=== PATIENT | female | born 1960 | race Caucasian/White ===

== ENCOUNTER 2025-09-22 17:51 | Inpatient (IN) | payer OTHER, MEDICARE ==
[~2025-09-22] VITALS: Ht 170.2 cm; Wt 99.6 kg
[~2025-09-22 17:51] MED LIST: AMLO1TAB23 PO; IBUP-1454 PO; LISI-285 PO; PRAV20TA3 OR; ZOLP10TA PO
--- NOTE | 2025-09-22 18:06 | ED.PDOC ---
HPI Comments HPI: 65 year old female presents to the ED via EMS with a chief complaint of chest pain onset 2 days. Per EMS, patient began experiencing LT sided chest pain, pressure sensation, for the past 2 days, worsens with exertion. She went to urgent care due to pain worsening, she was hypertensive, 911 was called. Patient was given Aspirin in route to ED, had slight improvement of symptoms. Denies shortness of breath, dizziness, numbness/tingling, fever, chills, nausea, vomiting, diarrhea. No other symptoms or modifying factors present at this time. Initial Vitals BP: 208/110 HR: 76 RR: 16 O2 Sat: 99% Temp: 98.2 F Past Medical history: HTN, HLD Past Surgical history: appendectomy, , RT foot surgery Medications: Amlodipine, Aspirin, Propranolol Social History: Denies smoking, ETOH, and drug use. Allergies: NKDA HOUSE: CP, HTN, OBESE. NORMAL EXAM. HPI: Poor Historian. REVIEW OF SYSTEMS: CONSTITUTIONAL: Denies acute: fever, diaphoresis, chills, generalized weakness. HEAD: Denies acute: headache, photophobia Eyes: Denies acute: Double vision, vision loss, eye pain, eye discharge. EARS: Denies acute: tinnitus, hearing loss, ear discharge, ear pain, THROAT: Denies acute: sore throat, swelling, difficulty swallowing , pain with swallowing, change in voice. NECK: Denies acute: neck pain, neck swelling, stiff neck. HEART: Denies acute : palpitations, LUNGS: Denies acute: SOB, wheezing, cough, hemoptysis ABDOMEN: Denies acute: abdominal pain, Nausea, Vomiting, diarrhea, melena , hematemesis, hematochezia SKIN: Denies acute: rash, redness, lesions, itchiness. EXTREMITIES: Denies acute: calf pain, numbness, tingling, weakness, Denies acute: Low back pain. Neuro: Denies acute: focal neurological deficit, motor or sensory focal neurological deficit, tremors, seizure like activity, confusion, dizziness, change in mental status, loss of bowel or bladder function, cauda equina like symptoms. : Denies acute: dysuria, hematuria, flank pain, increase in urinary frequency. PSYCH: Denies acute: hallucination, suicidal ideation, homicidal ideation. FEMALE: Denies acute: abnormal vaginal bleeding, foul odor, unusual discharge. PHYSICAL EXAM: General: -----mild---acute distress, awake and alert. Head: normocephalic, atraumatic. No raccoon's eyes, no cohen sign. Neck: supple, trachea is midline, no swelling. Throat: Normal phonation. Eyes:, no erythema, no purulent discharge, no proptosis, no icterus. Heart: regular rate, regular rhythm, no significant murmur appreciated. Lungs: no apparent respiratory distress, Able to speak in full sentences. No wheezing, no rhonchi, no crackles. No stridors Clear to auscultation bilaterally. Abdomen: non tender to palpation, non distended, soft, no guarding, no rebound, + bowel sounds. Obese Neuro: Awake, Alert, oriented to name, self, situation, follows commands GCS=15. Speech is normal. Skin: no petechia, no purpura, no cyanosis, non-pale, not jaundice. Lower extremities: --trace bilateral - Pitting edema no deformity, no focal swelling, no calf TTP. Makes eye contact. moves all four extremities. Face: no apparent facial droop. Ambulating in the ED independently. ED COURSE: DISCLAIMER: This medical document was created using an electronic medical record system with voice recognition software and computerized dictation system. Although this document has been carefully reviewed, there might still be some phonetic and typographical errors. Occasional wrong-word or "sound-alike" substitutions may have occurred due to the inherent limitations of voice recognition software. These areas are purely typographical due to imperfections of the software programs and do not reflect any compromise in the patient's medical care. Please read the chart carefully and recognize, using context, where these substitutions have occurred. Chief Complaint: Chest Pain Time Seen by MD: 18:00 Reviewed Notes: Medications, Allergies Allergies: Coded Allergies: NO KNOWN ALLERGIES (Unverified , 04/25/16) Home Meds Reported Medications Ibuprofen (Ibuprofen) 600 Mg Tab, 1 TAB PO BID, #90 TAB 04/25/16 Zolpidem Tartrate (Ambien) 10 Mg Tab, 1 TAB PO HS, #30 TAB 5 Refills 04/25/16 Amlodipine Besylate (Amlodipine Besylate) 10 Mg Tab, 1 TAB PO DAILY, #30 TAB 5 Refills 04/25/16 Lisinopril & Hydrochlorothiazi (Lisinopril/Hydrochlorothi) 1 Tab Tab, 1 TAB PO DAILY, #30 TAB 5 Refills 04/25/16 Pravastatin Sodium (PRAVACHOL TABLET) 20 Mg Tb, 40 MG OR DAILY 04/25/16 Information Source: Patient, Emergency Med Personnel Mode of Arrival: EMS Timing: Hours Duration: Since onset Prehospital treatment: Other (aspirin) Past Medical History PAST MEDICAL HISTORY: High Lipids, HTN Surgical History: Appendectomy OCCUPATIONAL HEALTH MANAGER History: No Pertinent OCCUPATIONAL HEALTH MANAGER History Family History Family History: Reviewed,noncontributory to illness, No family hx of Cancer, No family hx of DM, No family hx of Heart alfonso, No family hx of HTN, No family hx ofKidney alfonso, No family hx of Liver alfonso, No family hx of Lung alfonso, No family hx of Stroke Social History Smoker: Non-Smoker Alcohol: Denies ETOH Use Drugs: Denies Drug Use Lives In: Home Was a procedure done? Was a procedure done?: No X-Ray, Labs, Meds, VS Vital Signs Date Time Temp Pulse Resp B/P (MAP) Pulse Ox O2 Delivery O2 Flow Rate FiO2 09/22/25 20:09 150/73 09/22/25 19:30 97.7 74 18 173/97 (122) 96 97.7 09/22/25 19:02 96 Nasal Cannula* 2 28 09/22/25 19:01 77 21 169/84 (112) 96 09/22/25 18:54 79 179/78 09/22/25 18:53 79 09/22/25 18:40 77 17 96 Room Air* 0 21 09/22/25 18:40 202/110 09/22/25 18:40 97.8 77 17 202/110 (140) 96 97.8 09/22/25 17:56 98.2 76 16 208/110 99 98.2 09/22/25 17:53 81 Lab Test 09/22/25 19:52 09/22/25 18:25 Range/Units Troponin I High Sensitivity Pending 10 </=34 ng/L White Blood Count 6.9 4.4-10.8 10^3/uL Red Blood Count 4.92 4.0-5.20 10^6/uL Hemoglobin 13.8 12.2-16.2 g/dL Hematocrit 40.8 36.0-46.0 % Mean Corpuscular Volume 82.8 80.0-100.0 fL Mean Corpuscular Hemoglobin 28.1 28.0-32.0 pg Mean Corpuscular Hemoglobin Concent 33.9 32.0-36.0 g/dL Red Cell Distribution Width 13.7 11.8-14.3 % Platelet Count 211 140-450 10^3/uL Mean Platelet Volume 10.2 6.9-10.8 fL Neutrophils (%) (Auto) 52.5 37.0-80.0 % Lymphocytes (%) (Auto) 31.0 10.0-50.0 % Monocytes (%) (Auto) 8.3 0.0-12.0 % Eosinophils (%) (Auto) 7.6 H 0.0-7.0 % Basophils (%) (Auto) 0.6 0.0-2.0 % Neutrophils # (Auto) 3.6 1.6-8.6 10 ^3/uL Lymphocytes # (Auto) 2.1 0.4-5.4 10 ^3/uL Monocytes # (Auto) 0.6 0-1.3 10 ^3/uL Eosinophils # (Auto) 0.5 0-0.8 10 ^3/uL Basophils # (Auto) 0 0-0.2 10 ^3/uL Nucleated Red Blood Cells 0.1 % Sodium Level 142 136-145 mmol/L Potassium Level 3.7 3.5-5.1 mmol/L Chloride Level 109 H 98-107 mmol/L Carbon Dioxide Level 22 20-31 mmol/L Anion Gap 11 5-15 Blood Urea Nitrogen 11 9-23 mg/dL Creatinine 0.78 0.550-1.02 mg/dL Glomerular Filtration Rate Calc 84 >90 mL/min BUN/Creatinine Ratio 14.1 10.0-20.0 Serum Glucose 95 74-106 mg/dL Calcium Level 10.0 8.7-10.4 mg/dL Total Bilirubin 0.3 0.2-1.0 mg/dL Aspartate Amino Transferase (AST) 23 13-40 U/L Alanine Aminotransferase (ALT) 22 7-40 U/L Alkaline Phosphatase 101 46-116 U/L Total Protein 6.8 5.7-8.2 g/dL Albumin 4.1 3.2-4.8 g/dL Current Medications Medications (Trade) Dose Ordered Sig/Erwin Route Start Time Stop Time Status Last Admin Nitroglycerin (Ntrostat Sublingual) 0.4 mg ONCE ONCE SL 09/22/25 18:15 09/22/25 18:16 DC 09/22/25 18:40 Labetalol HCl (Labetalol HCl) 5 mg ONCE ONCE IV 09/22/25 18:45 09/22/25 18:46 DC 09/22/25 18:54 Amlodipine Besylate (Norvasc Tablet) 10 mg ONCE ONCE PO 09/22/25 20:00 09/22/25 20:06 DC 09/22/25 20:09 [place] [id number] Ph: [phone] DIAGNOSTIC IMAGING Diagnostic Imaging Report : [id number] Signed PATIENT: ZULEYMA GONZALEZ ACCT: [id number] UNIT: [id number] : 1960 LOC: ER ROOM / BED: / AGE / SEX: 65 / F ADM STATUS: REG ER SERVICE 04 ORDERING PHYSICIAN: THEODORE MO DO PROCEDURE(s): CXRP - CHEST PORTABLE REASON: CP ORDER NUMBER(s): [id number], ACCESSION NUMBER(s): [id number] CHEST RADIOGRAPH INDICATION: CP TECHNIQUE: Single frontal view of the chest was obtained COMPARISON: None FINDINGS: Lines and Tubes: None Lungs: No focal consolidation. Pleura: No effusion. No pneumothorax. Cardiomediastinal contours: Unremarkable Bones: No acute osseous abnormality. IMPRESSION: 1. No acute cardiopulmonary disease. 2. Prominent interstitial markings in the right lower lobe medially. 3. No prior studies for comparison. ATED BY: MINA PARRA Jr., DO DICTATED DATE/TIME: 09/22/251906 SIGNED BY: MINA PARRA Jr., DO SIGNED DATE/TIME: 09/22/251906 CC: Time of 1ST Reevaluation: 18:30 Reevaluation 1ST: Unchanged Patient Education/Counseling: Diagnosis, Treatment Family Education/Counseling: No Family Present Departure 1 Departure Impression: Primary Impression: Chest pain Additional Impression: Hypertensive urgency Disposition: ADMITTED INPATIENT Admit to: Tele Condition: Guarded Discharged With: Self Critical Care Note Critical Care Time?: No I personally scribed for THEODORE MO DO ([email or web address]) on 09/22/25 at 18:06. Electronically submitted by Patience Beth ([email or web address]). I personally scribed for THEODORE MO DO ([email or web address]) on 09/22/25 at 20:12. Electronically submitted by Patience Beth ([email or web address]). THEODORE MO DO Sep 22, 2025 18:06
[2025-09-22 18:40] VITALS: PULSE 77; RESP 17; O2SAT 96
[2025-09-22] MEDS: NITROGLYCERIN 0.4 MG SL TAB SL ONE (18:40)
[2025-09-22 18:51] LABS: Hematocrit 40.8 % (36.0-46.0); Hemoglobin 13.8 g/dL (12.2-16.2); Mean Corpuscular Hemoglobin 28.1 pg (28.0-32.0); Mean Corpuscular Volume 82.8 fL (80.0-100.0); Nucleated Red Blood Cells % 0.1 %
[2025-09-22] MEDS: LABETALOL HCL 20 MG/4 ML VL IV ONE (18:54)
--- NOTE | 2025-09-22 18:55 | ECG ---
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
[2025-09-22 19:05] LABS: Alanine Aminotransferase 22 U/L (7-40); Albumin 4.1 g/dL (3.2-4.8); Alkaline Phosphatase 101 U/L (46-116); Anion Gap 11 (5-15); BUN/Creatinine Ratio 14.1 (10.0-20.0); Blood Urea Nitrogen 11 mg/dL (9-23); Calcium 10.0 mg/dL (8.7-10.4); Carbon Dioxide 22 mmol/L (20-31); Glucose 95 mg/dL (74-106); Potassium 3.7 mmol/L (3.5-5.1); Sodium 142 mmol/L (136-145); Total Protein 6.8 g/dL (5.7-8.2)
[2025-09-22 19:06] LABS: Bilirubin, Total 0.3 mg/dL (0.2-1.0)
[2025-09-22 19:10] LABS: Chloride 109 mmol/L (98-107)
--- NOTE | 2025-09-22 19:10 | DVH ---
CHEST RADIOGRAPH INDICATION: CP TECHNIQUE: Single frontal view of the chest was obtained COMPARISON: None FINDINGS: Lines and Tubes: None Lungs: No focal consolidation. Pleura: No effusion. No pneumothorax. Cardiomediastinal contours: Unremarkable Bones: No acute osseous abnormality. IMPRESSION: 1. No acute cardiopulmonary disease. 2. Prominent interstitial markings in the right lower lobe medially. 3. No prior studies for comparison.
[2025-09-22] MEDS ORDERED: DOCUSATE SOD 100 MG CAP PO PRN (20:00)
[2025-09-22] MEDS ORDERED: HYDROcodone-ACET 5/325MG TAB PO PRN (20:00)
--- NOTE | 2025-09-22 20:27 | DVHHP2 ---
History of Present Illness Reason for Visit: Chest pain History of Present Illness The patient is a 65-year-old female with past medical history of hypertension and hyperlipidemia who presented to [facility] ED with complaint of chest pain for the past 2 days. Patient reports that she has been experiencing left-sided chest pain, pressure-like sensation, worsens with exertion, rating 7/10 numeric scale, getting worse today that prompted this visit. Patient went to urgent care due to worsening pain, and was hypertensive, 911 was called. Patient was given Aspirin in route to ED. Patient was seen and evaluated in the ED, laboratory data shows WBC 6.9, platelets 211, sodium 142, potassium 3.7, BUN 11, creatinine 0.78, GFR 84, glucose 95, calcium 10.0, troponin 10, blood pressure 208/110 trending down to 151/69, heart rate 77, temperature 97.8 F, O2 saturation 96% on oxygen. Chest x-ray revealing prominent interstitial markings in the left lower lobe medially, no acute cardiopulmonary disease. Please see medication orders section in the computer. On my assessment, patient denied chest pain at this moment, no headache, dizziness, diaphoresis, shortness of breaths, no diarrhea, nausea, vomiting, fever, no chills. Patient was admitted for further evaluation and medical management. Past Medical History High Lipids, HTN Past Surgical History Appendectomy, , RT foot surgery Family History Reviewed, noncontributory to the management of this case. Past Social History The patient lives at home, denies smoking, alcohol or illicit drugs abuse. Review of Systems Constitutional: Yes: Weakness; No: Fever, Chills, Sweats, Malaise, Other Eyes: No: Pain, Vision change, Conjunctivae inflammation, Eyelid inflammation, Other, Redness ENT: No: Ear pain, Ear discharge, Nose pain, Nose discharge, Nose congestion, Mouth pain, Mouth swelling, Throat pain, Throat swelling, Other Respiratory: No: Cough, Dry, Shortness of breath, SOB with excertion, Wheezing, Hemoptysis, Pleuritic Pain, Sputum, Wheezing, Other Cardiovascular: Other (Hypertension); No: Chest Pain, Palpitations, Orthopnea, Paroxysmal Noc. Dyspnea, Edema, Lt Headedness Gastrointestinal: No: Nausea, Vomiting, Abdominal Pain, Diarrhea, Constipation, Melena, Hematochezia, Other Genitourinary: No Dysuria, No Frequency, No Incontinence, No Hematuria, No Rete ntion, No Other Musculoskeletal: No: other, neck pain, shoulder pain, arm pain, back pain, hand pain, leg pain, foot pain Skin: No: Rash, Lesions, Jaundice, Bruising, Other Neurological: No: Weakness, Numbness, Incoordination, Change in speech, Confusion, Seizures, Other Allergies: Coded Allergies: NO KNOWN ALLERGIES (Unverified , 04/25/16) Medications Current Medications Medications Dose Ordered Sig/Erwin Route Start Time Stop Time Status Last Admin Dose Admin Atorvastatin Calcium 20 mg HS PO 09/22/25 22:00 Amlodipine Besylate 10 mg DAILY PO 09/23/25 10:00 Hydralazine HCl 10 mg Q6HP PRN IV 09/22/25 20:00 Sodium Chloride 10 ml Q8HR IV 09/22/25 22:00 Acetaminophen/ Hydrocodone Bitart 1 tab Q4HP PRN PO 09/22/25 20:00 Ondansetron HCl 4 mg Q4HP PRN IV 09/22/25 20:00 Hold Docusate Sodium 100 mg BIDPRN PRN PO 09/22/25 20:00 Acetaminophen 650 mg Q6HP PRN PO 09/22/25 20:00 Exam Vital Signs Vital Signs Date Time Temp Pulse Resp B/P (MAP) Pulse Ox O2 Delivery O2 Flow Rate FiO2 09/22/25 20:09 150/73 09/22/25 19:30 97.7 74 18 96 97.7 09/22/25 19:30 Nasal Cannula* 2 28 General Appearance: Alert, Oriented X3, Cooperative, No acute distress HEENT: Atraumatic, PERRLA, EOMI, Mucous membr. moist/pink Respiratory: Normal air movement Cardiovascular: Regular rate, Normal S1, Normal S2, No murmurs Abdominal: Normal bowel sounds, Soft, No tenderness, No hepatospenomegaly, No masses Extremities: No clubbing, No cyanosis, No edema, Normal pulses, No tenderness/swelling Skin: No rashes, No significant lesion Neuro: Normal speech, Normal tone, Sensation intact, Cranial nerves 3-12 NL, Reflexes 2+, Other (Generalized weakness) Psych/Mental Status: Mental status NL, Mood NL Labs/Xrays Labs Test 09/22/25 19:52 09/22/25 18:25 Range/Units White Blood Count 6.9 4.4-10.8 10^3/uL Red Blood Count 4.92 4.0-5.20 10^6/uL Hemoglobin 13.8 12.2-16.2 g/dL Hematocrit 40.8 36.0-46.0 % Mean Corpuscular Volume 82.8 80.0-100.0 fL Mean Corpuscular Hemoglobin 28.1 28.0-32.0 pg Mean Corpuscular Hemoglobin Concent 33.9 32.0-36.0 g/dL Red Cell Distribution Width 13.7 11.8-14.3 % Platelet Count 211 140-450 10^3/uL Mean Platelet Volume 10.2 6.9-10.8 fL Neutrophils (%) (Auto) 52.5 37.0-80.0 % Lymphocytes (%) (Auto) 31.0 10.0-50.0 % Monocytes (%) (Auto) 8.3 0.0-12.0 % Eosinophils (%) (Auto) 7.6 H 0.0-7.0 % Basophils (%) (Auto) 0.6 0.0-2.0 % Neutrophils # (Auto) 3.6 1.6-8.6 10 ^3/uL Lymphocytes # (Auto) 2.1 0.4-5.4 10 ^3/uL Monocytes # (Auto) 0.6 0-1.3 10 ^3/uL Eosinophils # (Auto) 0.5 0-0.8 10 ^3/uL Basophils # (Auto) 0 0-0.2 10 ^3/uL Nucleated Red Blood Cells 0.1 % Sodium Level 142 136-145 mmol/L Potassium Level 3.7 3.5-5.1 mmol/L Chloride Level 109 H 98-107 mmol/L Carbon Dioxide Level 22 20-31 mmol/L Anion Gap 11 5-15 Blood Urea Nitrogen 11 9-23 mg/dL Creatinine 0.78 0.550-1.02 mg/dL Glomerular Filtration Rate Calc 84 >90 mL/min BUN/Creatinine Ratio 14.1 10.0-20.0 Serum Glucose 95 74-106 mg/dL Calcium Level 10.0 8.7-10.4 mg/dL Total Bilirubin 0.3 0.2-1.0 mg/dL Aspartate Amino Transferase (AST) 23 13-40 U/L Alanine Aminotransferase (ALT) 22 7-40 U/L Alkaline Phosphatase 101 46-116 U/L Total Protein 6.8 5.7-8.2 g/dL Albumin 4.1 3.2-4.8 g/dL PATIENT: ZULEYMA GONZALEZ ACCT: [id number] UNIT: [id number] : 1960 LOC: ER ROOM / BED: / AGE / SEX: 65 / F ADM STATUS: REG ER SERVICE 04 ORDERING PHYSICIAN: THEODORE MO DO PROCEDURE(s): CXRP - CHEST PORTABLE REASON: CP ORDER NUMBER(s): [id number], ACCESSION NUMBER(s): [id number] CHEST RADIOGRAPH INDICATION: CP TECHNIQUE: Single frontal view of the chest was obtained COMPARISON: None FINDINGS: Lines and Tubes: None Lungs: No focal consolidation. Pleura: No effusion. No pneumothorax. Cardiomediastinal contours: Unremarkable Bones: No acute osseous abnormality. IMPRESSION: 1. No acute cardiopulmonary disease. 2. Prominent interstitial markings in the right lower lobe medially. 3. No prior studies for comparison. SEPSIS Sepsis Screen Date sepsis recognized/suspect: Sep 22, 2025 Time Sepsis recognized/suspect: 1929 Recent Procedure: No On Antibiotic Therapy: No Respiratory Rate >20: No Heart Rate >90: No Temp<36 C (96.8 F) or >38.3 C: No SBP <90 or MAP <65 mmHG: No New Acute Mental Status Change: No Is the patient on CPAP, BIPAP,: No Physician Orders Lift Team Technician (09/22/25 ) Chest Portable (09/22/25 18:05) Troponin-I Hs (09/22/25 19:05) Troponin-I Hs (09/22/25 21:05) Electrocardigram (09/22/25 19:05) Electrocardigram (09/22/25 21:05) Atorvastatin (Lipitor) (09/22/25 22:00) Amlodipine Tablet (Norvasc Tablet) (09/23/25 10:00) Hydralazine Injection (Apresoline Inject (09/22/25 20:00) Allergies (09/22/25 19:53) Code Status (09/22/25 19:53) Sodium Chloride Lock (Saline Lock Ns) (09/22/25 22:00) Oxygen Per Hour (09/22/25 19:53) Hydrocodone-Acet 5/325mg Tab (Ward 5/32 (09/22/25 20:00) Ondansetron Hcl (Zofran) (09/22/25 20:00) Docusate Sodium Capsule (Colace Capsule) (09/22/25 20:00) Complete Blood Count (09/23/25 04:00) Comprehensive Metabolic Panel (09/23/25 04:00) Cardiac Diet-2gna,Lofat,Lochol (09/23/25 Breakfast) Condition: Serious (09/22/25 19:53) Acetaminophen Tablet (Tylenol Tablet) (09/22/25 20:00) Bedrest With Bathroom Privileg (09/22/25 19:53) Maintain Bed Rest (09/22/25 19:53) Sequential Compression Device (09/22/25 ) Admit (09/22/25 20:26) Nitroglycerin Sublingual (Ntrostat Subli (09/22/25 20:30) Morphine Sulfate Injection (09/22/25 20:30) Stat Ekg For Chest Pain (09/22/25 20:26) Notify Md Of Changes From Base (09/22/25 20:26) Interactive Video Technician For 24 Hours (09/22/25 20:26) Emergency Dysrhythmia Protocol (09/22/25 20:26) Rhythm Strips Once Every Shift (09/22/25 20:26) Oxygen By Nasal Cannula (09/22/25 20:26) Vital Signs Date Time Temp Pulse Resp B/P (MAP) Pulse Ox O2 Delivery O2 Flow Rate FiO2 09/22/25 20:09 150/73 09/22/25 19:30 97.7 74 18 173/97 (122) 96 97.7 09/22/25 19:30 Nasal Cannula* 2 28 09/22/25 19:02 96 Nasal Cannula* 2 28 09/22/25 19:01 77 21 169/84 (112) 96 09/22/25 18:54 79 179/78 09/22/25 18:53 79 09/22/25 18:40 77 17 96 Room Air* 0 21 09/22/25 18:40 202/110 09/22/25 18:40 97.8 77 17 202/110 (140) 96 97.8 09/22/25 17:56 98.2 76 16 208/110 99 98.2 09/22/25 17:53 81 Laboratory Tests Test 09/22/25 18:25 White Blood Count 6.9 10^3/uL (4.4-10.8) Medications Medications Dose Ordered Sig/Erwin Route Start Time Stop Time Status Last Admin Dose Admin Amlodipine Besylate 10 mg ONCE ONCE PO 09/22/25 20:00 09/22/25 20:06 DC 09/22/25 20:09 10 MG Labetalol HCl 5 mg ONCE ONCE IV 09/22/25 18:45 09/22/25 18:46 DC 09/22/25 18:54 5 MG Nitroglycerin 0.4 mg ONCE ONCE SL 09/22/25 18:15 09/22/25 18:16 DC 09/22/25 18:40 0.4 MG Assessment/Plan Assessment/Plan Chest pain Hypertensive urgency Generalized weakness Plan 1. Admit to telemetry unit 2. Breathing treatment 3. Pain control management 4. Management of fluids and electrolytes 5. Consultation for hospitalist 6. Diagnostic tests chest x-ray 7. DVT prophylaxis-on SCDs 8. Repeat labs CBC, CMP in a.m. 9. Continue with current medical management 10. Treatment plan discussed with patient and RN. Patient verbalized understanding. Plan discussed with: Patient, Other (RN) My Orders Orders - TOÑITO BEARD DNP Procedure Category Date Status Time Atorvastatin (Lipitor) PHA 09/22/25 In Process 22:00 Amlodipine Tablet PHA 09/23/25 In Process (Norvasc Tablet) 10:00 Hydralazine Injection PHA 09/22/25 In Process (Apresoline Inject 20:00 Allergies CHUCKY 09/22/25 In Process 19:53 Code Status CODE 09/22/25 Transmitted 19:53 Sodium Chloride Lock PHA 09/22/25 In Process (Saline Lock Ns) 22:00 Oxygen Per Hour RT 09/22/25 Transmitted 19:53 Hydrocodone-Acet PHA 09/22/25 In Process 5/325mg Tab (Ward 20:00 Ondansetron Hcl PHA 09/22/25 In Process (Zofran) 20:00 Docusate Sodium PHA 09/22/25 In Process Capsule (Colace 20:00 Complete Blood Count LAB 09/23/25 Verified 04:00 Comprehensive LAB 09/23/25 Verified Metabolic Panel 04:00 Cardiac DIET 09/23/25 Transmitted Diet-2gna,Lofat,Lochol Breakfast Condition: Serious CHUCKY 09/22/25 In Process 19:[address] [facility] 09/22/25 In Process (Tylenol Tablet) 20:00 Bedrest With Bathroom CHUCKY 09/22/25 In Process Privileg 19:53 Maintain Bed Rest CHUCKY 09/22/25 In Process 19:53 Sequential [facility]Y 09/22/25 In Process Compression Device Admit ADMIT 09/22/25 Verified 20:[address] [facility] 09/22/25 Verified Sublingual (Ntrostat 20:[address] [facility] 09/22/25 Verified Injection 20:30 Stat Ekg For Chest [facility] 09/22/25 Verified Pain 20:26 Notify Of Changes [facility] 09/22/25 Verified From Base 20:26 Interactive Video Technician For [facility] 09/22/25 Verified 24 Hours 20:26 Emergency Dysrhythmia [facility] 09/22/25 Verified Protocol 20:26 Rhythm Strips Once [facility] 09/22/25 Verified Every Shift 20:26 Oxygen By Nasal RT 09/22/25 Verified Cannula 20:26 Problem List: (1) Chest pain (2) Hypertensive urgency (3) Generalized weakness Date of Service: Sep 22, 2025 Billing Provider: TOÑITO BEARD DNP Common Visit Codes: [id number] INP/OBS CARE (HIGH) TOÑITO BEARD DNP Sep 22, 2025 20:27
[2025-09-22] MEDS ORDERED: NITROGLYCERIN 0.4 MG SL TAB SL PRN (20:30)
[2025-09-22] MEDS ORDERED: MORPHINE SULFATE 4 MG/ML SYR/VIAL IV PRN (20:45)
--- NOTE | 2025-09-22 22:10 | ECG ---
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
[2025-09-22] MEDS: SODIUM CHLOR 0.9% PF (SALINE LOCK) 10ML VIAL/SYR IV SCH (23:29)
[2025-09-22] MEDS: hydrALAZINE HCL 20 MG/ML VL IV PRN (23:29)
[2025-09-22] MEDS: ATORVASTATIN 20 MG TAB PO SCH (23:29)
[2025-09-22 23:43] VITALS: BP 164/93; PULSE 80; RESP 19; TEMP 98; O2SAT 98
[2025-09-22 23:44] VITALS: PULSE 84; RESP 16; O2SAT 96
[2025-09-22] MEDS ORDERED: AMLO1TAB22 PO (23:58)
[2025-09-22] MEDS ORDERED: PROP80CA PO (23:58)
[2025-09-22] MEDS ORDERED: ATOR-47 PO (23:58)
[2025-09-22] MEDS ORDERED: FLUT250M2 INH (23:59)
[2025-09-23] VITALS (7 sets, daily range): BP systolic 139–154; BP diastolic 83–97; PULSE 65–86; RESP 16–19; TEMP 97.4–98.2; O2SAT 94–99
[2025-09-23 05:42] LABS: Hematocrit 42.8 % (36.0-46.0); Hemoglobin 14.2 g/dL (12.2-16.2); Mean Corpuscular Hemoglobin 28.0 pg (28.0-32.0); Mean Corpuscular Volume 84.5 fL (80.0-100.0); Nucleated Red Blood Cells % 0.0 %
[2025-09-23 05:58] LABS: Alanine Aminotransferase 22 U/L (7-40); Albumin 4.0 g/dL (3.2-4.8); Alkaline Phosphatase 104 U/L (46-116); Anion Gap 10 (5-15); BUN/Creatinine Ratio 14.5 (10.0-20.0); Blood Urea Nitrogen 11 mg/dL (9-23); Calcium 10.2 mg/dL (8.7-10.4); Carbon Dioxide 26 mmol/L (20-31); Glucose 98 mg/dL (74-106); Potassium 4.1 mmol/L (3.5-5.1); Sodium 145 mmol/L (136-145); Total Protein 6.3 g/dL (5.7-8.2)
[2025-09-23 05:59] LABS: Bilirubin, Total 0.5 mg/dL (0.2-1.0)
[2025-09-23 06:00] LABS: Chloride 109 mmol/L (98-107)
[2025-09-23] MEDS ORDERED: AMLO1TAB23 PO (15:22)
[2025-09-23] MEDS ORDERED: PROP80CA PO (15:22)
--- NOTE | 2025-09-23 15:24 | DVHDS2 ---
Discharge Summary Date of Admission Sep 22, 2025 at 20:26 Date of Discharge: Sep 23, 2025 Labs/Diagnostic Data: Laboratory Results Test 09/23/25 05:05 09/22/25 19:52 White Blood Count 6.4 10^3/uL (4.4-10.8) Red Blood Count 5.07 10^6/uL (4.0-5.20) Hemoglobin 14.2 g/dL (12.2-16.2) Hematocrit 42.8 % (36.0-46.0) Mean Corpuscular Volume 84.5 fL (80.0-100.0) Mean Corpuscular Hemoglobin 28.0 pg (28.0-32.0) Mean Corpuscular Hemoglobin Concent 33.1 g/dL (32.0-36.0) Red Cell Distribution Width 13.9 % (11.8-14.3) Platelet Count 208 10^3/uL (140-450) Mean Platelet Volume 9.8 fL (6.9-10.8) Neutrophils (%) (Auto) 54.5 % (37.0-80.0) Lymphocytes (%) (Auto) 26.8 % (10.0-50.0) Monocytes (%) (Auto) 10.1 % (0.0-12.0) Eosinophils (%) (Auto) 7.9 % (0.0-7.0) Basophils (%) (Auto) 0.7 % (0.0-2.0) Neutrophils # (Auto) 3.5 10 ^3/uL (1.6-8.6) Lymphocytes # (Auto) 1.7 10 ^3/uL (0.4-5.4) Monocytes # (Auto) 0.6 10 ^3/uL (0-1.3) Eosinophils # (Auto) 0.5 10 ^3/uL (0-0.8) Basophils # (Auto) 0 10 ^3/uL (0-0.2) Nucleated Red Blood Cells 0.0 % Sodium Level 145 mmol/L (136-145) Potassium Level 4.1 mmol/L (3.5-5.1) Chloride Level 109 mmol/L (98-107) Carbon Dioxide Level 26 mmol/L (20-31) Anion Gap 10 (5-15) Blood Urea Nitrogen 11 mg/dL (9-23) Creatinine 0.76 mg/dL (0.550-1.02) Glomerular Filtration Rate Calc 86 mL/min (>90) BUN/Creatinine Ratio 14.5 (10.0-20.0) Serum Glucose 98 mg/dL (74-106) Calcium Level 10.2 mg/dL (8.7-10.4) Total Bilirubin 0.5 mg/dL (0.2-1.0) Aspartate Amino Transferase (AST) 25 U/L (13-40) Alanine Aminotransferase (ALT) 22 U/L (7-40) Alkaline Phosphatase 104 U/L (46-116) Total Protein 6.3 g/dL (5.7-8.2) Albumin 4.0 g/dL (3.2-4.8) Troponin I High Sensitivity 9 ng/L (</=34) Other Laboratory Tests 09/23/25 05:05 Brief Hx & Hospital Course: The patient is a 65-year-old female with past medical history of hypertension and hyperlipidemia who presented to [facility] ED with complaint of chest pain for the past 2 days. Patient reports that she has been experiencing left-sided chest pain, pressure-like sensation, worsens with exertion, rating 7/10 numeric scale, getting worse today that prompted this visit. Patient went to urgent care due to worsening pain, and was hypertensive, 911 was called. Patient was given Aspirin in route to ED. Patient was seen and evaluated in the ED, laboratory data shows WBC 6.9, platelets 211, sodium 142, potassium 3.7, BUN 11, creatinine 0.78, GFR 84, glucose 95, calcium 10.0, troponin 10, blood pressure 208/110 trending down to 151/69, heart rate 77, temperature 97.8 F, O2 saturation 96% on oxygen. Chest x-ray revealing prominent interstitial markings in the left lower lobe medially, no acute cardiopulmonary disease. Please see medication orders section in the computer. On my assessment, patient denied chest pain at this moment, no headache, dizziness, diaphoresis, shortness of breaths, no diarrhea, nausea, vomiting, fever, no chills. Patient was admitted for further evaluation and medical management. Patient is admitted and underwent counseled regarding compliance with the blood pressure medications. Patient resumed on home medications and blood pressure improved. Patient otherwise clinically stable. Therefore it is felt she could be safely discharged home with continued outpatient treatment with a blood pressure medications and close follow up with the PCP. I have talked with the patient regarding her hospital diagnosis, treatment she received, discharge medications, discharge instructions and follow-up plan of care. She has verbalized understanding of these and agree with the care plan as outlined. Condition at Discharge: Stable Final Diagnosis/Problems List malignant htn, chest pain Discharge Disposition: Home Discharge Instruct/Medications Diet: Consistent carbohydrate, Cardiac 2g Na,low cholest Activity: No Restrictions, As Tolerated Follow Up/Referral: PCP 2 weeks for blood pressure checks and referral to cardiolgy Medications: amlodipine, propranolol as prescribed and other home medications Scheduled Amlodipine Besylate (Amlodipine Besylate), 1 TAB PO DAILY Atorvastatin Calcium (Atorvastatin Calcium), 1 TAB PO DAILY, (Reported) Fluticasone-Salmeterol (Advair Diskus 250/50), 1 PUFF INH BID, (Reported) Ibuprofen (Ibuprofen), 1 TAB PO BID, (Reported) Pravastatin Sodium (Pravachol Tablet), 40 MG OR DAILY, (Reported) Propranolol HCl (Propranolol Hydrochloride), 1 CAP PO DAILY Zolpidem Tartrate (Ambien), 1 TAB PO HS, (Reported) Discontinued Medications Amlodipine Besylate (Amlodipine Besylate), 1 TAB PO DAILY, (Reported) Lisinopril & Hydrochlorothiazi (Lisinopril/Hydrochlorothi), 1 TAB PO DAILY, (Reported) Discharge Statement: "Patient was advised to return to the ER or call 911 if any headaches, dizziness, shortness of breath, chest pain, abdominal pain, bleeding, fevers, or worsening of medical condition. Patient was counseled about treatment plan, medications, possible side effects, patientverbalized understanding. All questions were answered to the best of my ability. This discharge took greater then 30 minutes in planning, reviewing documentation, counseling the patient, and discussing with other team members." ASSESSMENT ASSESSMENT Assessment malignant htn, chest pain Date of Service: Sep 23, 2025 Billing Provider: JEISON ALFRED MD Common Visit Codes: 07829-RHR/OBS DISCH DAY >30min JEISON ALFRED MD Sep 23, 2025 15:24
[2025-09-23] MEDS: IOHEXOL 350 MG/ML 100ML IJ ONE (17:55)
--- NOTE | 2025-09-23 19:51 | DVH ---
COMPUTERIZED TOMOGRAPHIC ANGIOGRAPHY OF THE CHEST WITH INTRAVENOUS CONTRAST REASON FOR EXAM: elevated D-Dimer, chest pain COMPARISON: XY CHEST PORTABLE on DOS: 09/22/25 TECHNIQUE: The exam was performed on a multidetector spiral scanner. Spiral images were acquired from the thoracic inlet through the adrenal glands, during the bolus intravenous administration of contrast. Multiplanar maximum intensity projection (MIP) images were provided. Radiation optimization: All CT scans at this facility use at least one of these dose optimization techniques: Automated exposure control mA and/or kV adjustment per patient size (includes targeted exams where dose is matched to clinical indication) or iterative reconstruction. CONTRAST ADMINISTERED: 67 mL omnipaque 350 intravenously. RADIATION DOSE: CTDI: 22.45 mGy DLP: 840.63 mGy-cm FINDINGS: Respiratory motion artifact degrades evaluation. No significant airspace disease is identified within the limitations of motion artifact. There is no pleural effusion. There is no pneumothorax. No pulmonary arterial filling defect is identified as far as the subsegmental level. There is no thoracic aortic aneurysm. There is an aberrant right subclavian artery. The heart is within normal limits for size. There is no pericardial effusion. There are coronary artery calcifications. No pathologic lymphadenopathy is identified in the chest. There is a large hiatal hernia with the gastric fundus located in the posterior mediastinum. There is a 3.1 cm calcified gallstone. There is partial visualization of a mass in the left abdomen likely of renal origin and measuring at least 11.5 cm. No acute osseous abnormality is identified. IMPRESSION: No evidence of pulmonary embolism as far as the subsegmental level. Partial visualization of a mass in the left abdomen, likely of renal origin. Recommend contrast-enhanced CT of the abdomen and pelvis if not previously performed. Cholelithiasis Aberrant right subclavian artery. Large hiatal hernia. Aspiration precautions are recommended.
[2025-09-23] MEDS: ACETAMINOPHEN 325 MG TAB PO PRN (19:52)
[2025-09-23] MEDS: ONDANSETRON HCL 4 MG/2 ML VIAL IV PRN (19:52)
== END 2025-09-23 20:58 | disposition home or self-care (01) | DRG 305 ==
LOC: ER 17:51 → EDBD 17:51 → OVERFLOW 20:26 → TELE-EAST 23:07
PROVIDERS: ADMIT Nurse Practitioner Family; ATTEND Nurse Practitioner Family
DX: I16.0 Hypertensive urgency (principal); E78.5 Hyperlipidemia, unspecified; I10 Essential (primary) hypertension; Z90.49 Acquired absence of other specified parts of digestive tract
CPT/HCPCS: 36415; 71045; 71275; 80053; 84484; 85025; 85379; 93005; 96374; G0378; J2405